=== PATIENT | female | born 1985 ===

== ENCOUNTER 2018-09-08 15:48 | Inpatient (IN) | payer OTHER, SELFPAY ==
[~2018-09-08 15:48] MED LIST: Dexamethasone 20 MG/5 ML VIAL ONE; Glycopyrrolate 0.2 MG/ML 5 ML SYRINGE ONE; Ketorolac Tromethamine 30 MG/ML VIAL ONE; Lidocaine 1% PF 5 ML VIAL ONE; Metoclopramide HCl 10 MG/2 ML VIAL ONE; Morphine 2 MG/ML SYRINGE ONE; Ondansetron PF 4 MG/2 ML Vial ONE; PROPOFOL 200 MG/20 ML VIAL ONE; Succinylcholine Chloride 20 MG/ML 10 ml SYRINGE FS ONE
--- NOTE | 2018-09-08 17:39 | RAD ---
RIGHT HAND TWO VIEWS: HISTORY: Right hand injury. COMPARISON: Earlier exam on same day. FINDINGS: Overlying fiberglass splint is now apparent. Full shaft width volar displacement of the distal fragm ent persists at the base of the proximal phalangeal fracture of the little finger. Traphill volar angula tion also persists. Lateral alignment has been corrected. Other findings are unchanged. POS: [facility]
[2018-09-08] MEDS ORDERED: Ondansetron HCl/PF 4 MG/2 ML Vial IVP PRN (18:11)
[2018-09-08] MEDS ORDERED: Promethazine HCl 25 MG/ML VIAL SLOW IVP PRN (18:11)
[2018-09-08] MEDS ORDERED: Promethazine HCl 25 MG/ML VIAL IM PRN (18:11)
[2018-09-08] MEDS ORDERED: Bacitracin Zinc Ointment 30 gm TUBE ONE (18:12)
[2018-09-08] MEDS ORDERED: Bupivacaine PF 0.5% 30 ML VIAL ONE (18:12)
[2018-09-08] MEDS ORDERED: Betamet Acet/Betamet Na Ph 30 MG/5 ML VIAL ONE (18:12)
[2018-09-08] MEDS ORDERED: Sodium Chloride 0.9% 30 ML ONE (18:12)
[2018-09-08] MEDS ORDERED: Fentanyl 250 MCG/5 ML VIAL ONE (18:14)
[2018-09-08] MEDS ORDERED: Lidocaine 2% PF 5 ML VIAL ONE (19:20)
[2018-09-08] MEDS ORDERED: Heparin 10,000 UNITS/1 ML VIAL ONE (19:20)
[2018-09-08] MEDS ORDERED: Hetastarch 6% 500 ML 500 ML ONE (19:20)
--- NOTE | 2018-09-08 20:58 | RAD ---
RIGHT SMALL FINGER INTRAOPERATIVE FLUOROSCOPIC IMAGES: 09/08/2018 HISTORY: Right hand injury. COMPARISON: Right hand views obtained earlier today. FINDINGS/IMPRESSION: Three fluoroscopic images of the right hand are submitted for interpretation. Fluoroscopic guidance was provided for Dr. Campbell. Provided images demonstrate amputation of the right small finger, at the level of the metatarsophalangeal joint. Correlation with intraoperative findings is recommended. POS: [facility]
[2018-09-08] MEDS ORDERED: Milk Of Magnesia 30 ML UDCUP PO PRN (21:05)
[2018-09-08] MEDS ORDERED: Ondansetron PF 4 MG/2 ML Vial IV PRN (21:05)
[2018-09-08] MEDS ORDERED: HYDROcodone/Acetaminophen 10/325 mg Tablet PO PRN (21:05)
[2018-09-08] MEDS ORDERED: Meperidine HCl/PF 25 MG/ML VIAL IM PRN (21:09)
[2018-09-08] MEDS ORDERED: RENALLY ADJUST ANTIBIOTICS FS SCH (21:15)
[2018-09-08] MEDS ORDERED: Morphine 2 MG/ML SYRINGE IVP PRN (23:53)
[2018-09-09] MEDS: Ketorolac Tromethamine 30 MG/ML VIAL IVP PRN (01:37)
[2018-09-09] MEDS: Ketorolac Tromethamine 30 MG/ML VIAL IVP SCH ×4 (01:41→16:30)
[2018-09-09] MEDS ORDERED: Vancomycin HCl 1 GM in Premix Bag 1 BAG IVPB SCH ×2 (06:00→17:45)
--- NOTE | 2018-09-09 07:31 | OP ---
DATE OF SURGERY: 09/08/2018 PREOPERATIVE DIAGNOSES: 1. Right small finger fracture, open proximal phalanx with segmental arterial nerve and bone loss se condary to a saw with transverse injury as well as longitudinal injury from the mid portion of the pr oximal phalanx distally x3 different wound injuries. 2. Open metacarpal head fracture, right small finger. 3. Volar plate laceration metacarpophalangeal joint right small finger. 4. A 10 cm wound with a flexor tendon laceration, right small finger. 5. At the right ring finger, wound 10 cm with ulnar digital nerve laceration, no flexor tendon invol vement. PROCEDURES PERFORMED: 1. At the right small finger: A. Debridement of open fracture metacarpal head. B. Open treatment fresh metacarpal head. C. Completion of amputation after neuroplasty, microscopic, and an evaluation of the arterial circul ation bit distal to the laceration with only a 5 mm skin bridge dorsally intact. 2. At the right ring finger: A. Microscopic digital nerve, ulnar, repair. B. Right ring finger 10 cm wound debridement. C. Right ring finger 10 cm wound closure. ESTIMATED BLOOD LOSS: 25 mL. TOURNIQUET TIME: 55 minutes. FINDINGS: 1. Multiplane laceration transverse and multiple longitudinal and small finger from the metacarpopha langeal joint capsule volarly to the tip of the digit, distal to the DIP joint. 2. longitudinal proximal, middle and distal phalanx level neurovascular bundle to include turner ry lacerations. 3. Six-part intra-articular fracture proximal one-third to mid third shaft proximal phalanx small fi nger fractures. INDICATIONS: The patient had a wound at her job. At bedside, you can see the multiple laceration li brendan circumferentially as well with a little bit of dorsal circulation at the level of the mid PIP katelyn nts last metacarpophalangeal, middle phalanx base, but no other circulation seen distally. By the ti me, we achieved surgical intervention. The patient received a saw injury to her right dominant hand small finger some to the ring finger while at work. She was evacuated from a nearby [facility] because of lack of available hand Orthopedics there to our facility where I was on-call duty. On my initial evaluation in the emergency room in the preoperative area of the hospital, where she was directly admitted, we could see that the patient had a very catastrophic injuries that she was schedu led for surgery has appropriate tetanus and antibiotics. DESCRIPTION OF PROCEDURE: After successful general endotracheal anesthesia, the limb was prepped and draped. The patient then had the appropriate antibiotics given, timeout was completed, and then we inspected the wound. At that point, it was hard to tell on the regular magnification other than the fact that there was only a small approximately 1/3 the joint surface left, but no subchondral bone, f ixation was nearly impossible. Then, the mid shaft level of fracture had marked comminution as well, so bony saunders, the patient will not be a candidate for fixation without excessive amounts of siomara ne graft from the pelvis. We then inflated the tourniquet after exsanguination of limb to 250 mmHg pressure and began to explor e the neurovascular bundles in this finger. We first began at the level of the injury, which is the mid third, proximal third base of the proximal phalanx of the small finger. Here, we saw there was a bsolutely no fixation available, despite multiple K-wire attempts to achieve reconstruction back to t he triangular shaped piece on the portable radial aspect of small finger MP joint. Then, we shelled these out and looked to see that could be a fusion because when we did do that we saw the almost two bite-type fracture in the base of the metacarpal head and neck caudal surface will be debrided this w ith a curette, [place] blade, until we had achieved clean bony surface. At this point, I deflated carie rniquet to see what the circulation pattern was like in this white finger. Indeed, there was no circ ulation active from the visualization, we were able to obtain. For this reason, mutilating injury, s egment of bone loss in the base of proximal phalanx, comminuted intra-articular fracture could not be reconstructed, this is at the base of the proximal phalanx, and then the patient also had the segmen tereza laceration to radial and ulnar, neurovascular bundle, specifically artery. For this reason, ____ _ injury was not resalvageable and we then proceeded to complete the amputation of the level of the s kin over the middle aspect of the proximal phalanx. The patient then had further inspection made of the ring finger and found the flexor tendons intact and had a good flexion added to preop, and then w e were able to identify the ulnar nerve was lacerated near its bifurcation into the palmar and dorsal . We removed minimal amount of neural tissue from the proximal end, the distal end had no abnormalit y seen, and then began to repair the nerve with three 9-0 Nurolon sutures/Ethilon sutures. There wer e no complications, no untoward effects. We then were able to obtain closure of the wound after rele ase of tourniquet and obtained hemostasis. At the small finger wound, because the metacarpal head an d loss of 50% articular surface, there was a need to protect the jagged bone edge of the remaining so ft tissue prevent the pain, performed a small neurectomy of the digital nerves so they would be back away from the closure wound is 5 mm and we were able to perform a closure of the volar plate and repa ir of some of the additional soft tissue capsule over the exposed bone, we had a comminuted neck and head fracture. One out of displaced, still may be in pain without this maneuver. We still maintaine d good hemostasis in the flap, irrigated flap with another 3 liters normal saline over the adjacent r ing finger, then we began closure after hemostasis was excellent. This was done with interrupted 5-0 nylon and the patient then had a bulky dressing applied and dorsal block splint and left the operati ng room without evidence of anesthetic or operative complication.
[2018-09-09] MEDS ORDERED: TETANUS AND DIPHTHERIA TOX/PF 0.5 ML DISP.SYRIN IM SCH (09:00)
[2018-09-09] MEDS: Aspirin 81 mg Enteric Coated Tablet PO SCH (10:35)
[2018-09-09 13:24] LABS: BHCG - Serum Negative (NEGATIVE); Pregs Control Background? CLEAR/WHITE (CLR/WHITE); Pregs Control Bar Appear? YES (CONTROL BAR)
[2018-09-09 14:31] LABS: ALT (SGPT) 13 U/L (8-55); AST (SGOT) 21 U/L (5-34); Alkaline Phosphatase 57 U/L (40-150); Bilirubin, Direct 0.1 mg/dL (0.1-0.3); Bilirubin, Total 0.2 mg/dL (0.2-1.2); Protein, Total 6.6 g/dL (6.0-8.3)
--- NOTE | 2018-09-09 15:30 | CT ---
ABDOMEN CT SCAN WITH AND WITHOUT IV CONTRAST: Date: 09/09/18 HISTORY: 33-year-old female with history of nausea and abdominal pain following an injury. FINDINGS: There is some very subtle subcutaneous fat stranding over the mid right anterior abdominal wall, poss ibly some very mild soft tissue contusion. The lung bases are clear. Liver, gallbladder, pancreas, sp alyson, and adrenal glands are unr4e. No renal calculus or acute obstruction. No abscess or abnormal fluid collection noted within the abdomen. There is no evidence for intra or extrahepatic liver inju ry or laceration. IMPRESSION: Unremarkable abdomen CT scan. POS: [facility]
[2018-09-09] MEDS ORDERED: Iopamidol 370 76% 100 ML VIAL ONE (15:53)
[2018-09-09 17:43] VITALS: BMI 24.1
[2018-09-09 18:08] LABS: Anion Gap 12 mmol/L (10-20); BUN (Urea Nitrogen) 8 mg/dL (7.0-18.7); Calc. Creatinine Clearance 114 mL/min (70-130); Calcium 8.6 mg/dL (7.8-10.44); Carbon Dioxide 20 mmol/L (22-29); Chloride 108 mmol/L (98-107); Estimated GFR-MDRD Greater than 90; Glucose 140 mg/dL (70-105); Potassium 3.4 mmol/L (3.5-5.1); Sodium 137 mmol/L (136-145)
[2018-09-09] MEDS: HYDROcodone/Acetaminophen 5/325 mg Tablet PO PRN (20:13)
[2018-09-10] MEDS: Ketorolac Tromethamine 30 MG/ML VIAL IVP PRN
[2018-09-10] MEDS: Aspirin 81 mg Enteric Coated Tablet PO SCH ×2 (00:02→08:57)
[2018-09-10] MEDS: Ketorolac Tromethamine 30 MG/ML VIAL IVP SCH (00:02)
[2018-09-10] MEDS: HYDROcodone/Acetaminophen 5/325 mg Tablet PO PRN ×2 (02:49→08:57)
[2018-09-10] MEDS ORDERED: Vancomycin HCl 1 GM in Premix Bag 1 BAG IVPB SCH (08:00)
[2018-09-10] MEDS ORDERED: Acetaminophen 500 MG TAB PO PRN (10:28)
[2018-09-10] MEDS ORDERED: traMADol HCl 50 MG TAB PO SCH (12:00)
[2018-09-10] MEDS ORDERED: Acetaminophen 500 MG TAB PO SCH (12:00)
[2018-09-10] MEDS ORDERED: Gabapentin 100 MG CAP PO SCH ×2 (15:00)
[2018-09-10 16:36] VITALS: BP 109/62; TEMP 97.9
--- NOTE | 2018-09-10 23:15 | CON ---
DATE OF CONSULTATION: 09/10/2018 REQUESTING PHYSICIAN: Dr. Phan Campbell, Ortho hand surgery. HISTORY OF PRESENT ILLNESS: Ms. Zaragoza is a 33-year-old woman who suffered chainsaw lacerati on to right hand with injury to multiple fingers. Apparently, the patient suffered a kick back of th e handle of this chainsaw to her abdomen. There was no laceration to the abdomen. Patient was compl aining of some supraumbilical midline abdominal pain yesterday. There was no nausea, vomiting. She is tolerating general diet. She is passing flatus and had bowel movement. She rated her pain at 8/1 0 prior to analgesics. At the time of my evaluation this morning, she is awake and alert. She did h ave a CT scan of the abdomen and pelvis yesterday, which was unremarkable for any acute intraabdomina l pathology. PAST MEDICAL HISTORY: Unremarkable. PAST SURGICAL HISTORY: She denies any previous surgeries. SOCIAL HISTORY: She is . She has 4 children. She denies any cigarette smoking, ethanol, or illicit drug abuse. FAMILY HISTORY: Notable for diabetes mellitus. She denies any family history of heart disease or ca ncer. PREHOSPITALIZATION: None. ALLERGIES: Patient denies any known drug allergies. REVIEW OF SYSTEMS: A 10-point review of systems essentially unremarkable except for as stated in pas t medical history and chief complaint. PHYSICAL EXAMINATION: GENERAL: This revealed 33-year-old normally developed woman who is otherwise coherent and interactiv e and appears stated age. Patient is alert and oriented x3, appears to be in no acute distress at th e time of my evaluation. VITAL SIGNS: Includes blood pressure 101/59, pulse 56, respiratory rate is 16, temperature 98.5 degr ees Fahrenheit, oxygen saturation 98% on room air. HEENT: Reveals normocephalic and atraumatic. Pupils are equal, round, reactive to light and accommo dation. Extraocular muscles intact bilaterally. No sclerae icterus is present. Oral mucosa is pink and moist. No lesions are noted. NECK: Supple. No palpable lymphadenopathy or thyromegaly present. CARDIOVASCULAR: Reveals regular rate and rhythm. No murmurs or gallops auscultated. LUNGS: Clear to auscultation bilaterally. Breathing regular and unlabored. ABDOMEN: Soft, nondistended. She has a small superficial ecchymosis in the supraumbilical about inf ra xiphoid soft tissue. There is no hematoma present. This area is tender to palpation, but patient clearly has no gross rebound tenderness on examination. Liver and spleen are nonpalpable below cost al margin. EXTREMITIES: Reveals 2+ left radial and bilateral pedal pulses present. The right upper extremity i s immobilized in a forearm splint. NEUROLOGIC: Reveals no focal deficits present. IMPRESSION: 1. trauma to the right hand and fingers being managed by Ortho hand surgery. I was unable to examine the injuries to the hand. 2. Blunt abdominal trauma with musculoskeletal pain, clearly no clinical or radiographic evidence of intraabdominal acute pathology. PLAN: 1. There is no further surgical indication for this patient at this time. 2. Diet and activity to be advanced as tolerated. 3. Patient requires no further follow up from this Trauma Surgery standpoint. Thank you again, Dr. Campbell for allowing me the opportunity to participate in the care of this aimee ent.
== END 2018-09-10 16:56 | disposition home or self-care (01) | DRG 906 ==
LOC: SDC 15:48 → OBSVTOIN 21:17 → 3SE 21:17
PROVIDERS: ADMIT Orthopaedic Surgery Hand Surgery; ATTEND Orthopaedic Surgery Hand Surgery
PROC: 0X6V0Z1 Detachment at Right Little Finger, High, Open Approach (ICD-10-PCS; principal; 2018-09-08)
PROC: 01Q40ZZ Repair Ulnar Nerve, Open Approach (ICD-10-PCS; 2018-09-08)
PROC: 0PBP0ZZ Excision of Right Metacarpal, Open Approach (ICD-10-PCS; 2018-09-08)
DX: S68.126A Partial traumatic metacarpophalangeal amputation of right little finger, initial encounter (principal); S66.126A Laceration of flexor muscle, fascia and tendon of right little finger at wrist and hand level, initial encounter; S64.494A Injury of digital nerve of right ring finger, initial encounter; S64.496A Injury of digital nerve of right little finger, initial encounter; R10.9 Unspecified abdominal pain; W29.3XXA Contact with powered garden and outdoor hand tools and machinery, initial encounter; Y92.69 Other specified industrial and construction area as the place of occurrence of the external cause; Y99.0 Civilian activity done for income or pay
CPT/HCPCS: 36415; 74170; 76001; 80048; 80076; 84703; 88305; J0702; J1100; J1644; J1885; J2001; J2270; J2405; J2704; J2765; J3010; J3370; J3490; S0020